=== PATIENT | female | born 1975 | race Caucasian/White ===

== ENCOUNTER → 2020-04-22 13:46 | Outpatient (BNVA) | payer OTHER, SELFPAY | PROVIDERS: Family Provider Internal Medicine; PCP Internal Medicine; Visit Provider Nurse Practitioner | DX: Z02.1 Encounter for pre-employment examination (principal) | CPT/HCPCS: 81000 ==

== ENCOUNTER 2024-12-16 13:07 | Outpatient (CLI) | payer OTHER, SELFPAY ==
--- NOTE | 2024-12-16 13:14 | MM_ITS ---
WS: [id number] BILATERAL 3D TOMOSYNTHESIS DIGITAL SCREENING MAMMOGRAPHY WITH CAD CLINICAL INFORMATION: SCREENING HISTORY: Screening mammogram. No current complaints. Did not return for 2019 a 6-month follow-up COMPARISON: 2019 TECHNIQUE: Bilateral CC and MLO views. FINDINGS: Scattered fibroglandular densities bilaterally. No suspicious focal mass, asymmetry, calcifications, or architectural distortion. No evidence of malignancy. Previously described asymmetries in the later al RIGHT breast are unchanged. MM/MM [facility] tomosynthesis [id number] IMPRESSION: DENSITY: There are scattered areas of fibroglandular density. BI-RADS: 2 - Benign. FOLLOW UP: 1 Year Follow-up Recommend return to annual screening mammography.
== END 2024-12-16 13:08 | disposition home or self-care (01) ==
LOC: RAD 13:12
PROVIDERS: Family Provider Internal Medicine; PCP Family Medicine; Visit Provider Internal Medicine
DX: Z12.31 Encounter for screening mammogram for malignant neoplasm of breast (principal); R92.323 Mammographic fibroglandular density, bilateral breasts; N64.89 Other specified disorders of breast
CPT/HCPCS: 77063; 77067

== ENCOUNTER 2025-03-17 14:13 | Outpatient (CLI) | payer OTHER, SELFPAY ==
--- NOTE | 2025-03-17 14:17 | CT_ITS ---
WS: [id number] CT ABDOMEN AND PELVIS WITH AND WITHOUT CONTRAST HISTORY: URINE ABNORMALITY, hematuria. TECHNIQUE: Unenhanced 5 mm axial imaging first performed through the abdomen. Post contrast imaging through the abdomen and pelvis. Oral contrast has not been provided. Sagittal and coronal reformats are submitted. All CT scans at [facility] use at least one of these dose optimization techniques: automated exposure control; mA and/or kV adjustment per patient size (includes targeted exams where dose is matched to clinical indication); or iterative reconstruction. CONTRAST: Omnipaque 350; 95 mL IV. DLP: 1375.67 mGy.cm COMPARISON: None available. Lungs are well aerated. Benign granuloma LEFT lung base. There is a central calcification with a small amount of noncalcified surrounding soft tissue. The entire nodule measures 2.0 cm. Heart is normal size. Small hiatal hernia. RIGHT kidney: Normal size kidney with no calcification or obstruction. No enhancing mass. LEFT kidney: Normal size kidney with no obstruction or calcification. Simple cyst upper pole measures 2.2 x 2.0 cm. No solid mass or renal obstruction. No ureteral obstruction. Liver, gallbladder, spleen, pancreas and adrenal glands are negative. Minimal atherosclerosis aorta. No aneurysm. No GI tract obstruction. No colitis. There is increased soft tissue in the ascending colon which needs to be further evaluated. This is asymmetric increased soft tissue with diameter measuring up to 2.6 cm. No adjacent lymph node. Mild sigmoid diverticular burden. There is narrowing of the lumen with no acute diverticulitis. Prior appendectomy. Enlarged endometrium. Endometrium measures up to 2.2 cm with soft tissue extension towards the cervix. Ovaries are normal size. Urinary bladder is minimally No destructive bone lesions. Distended. CT/CT abdomen pelvis wo/w [id number] IMPRESSION: 1. No renal calcification or obstruction. 2. LEFT renal cyst 2.2 x 2.0 cm. 3. Asymmetric soft tissue thickening of the ascending colon suspicious for ching plasm until proven otherwise. Recommend colonoscopy. 4. Abnormal endometrium measuring up to 2.2 cm. Endometrial neoplasm needs to be excluded. Recommend transvaginal pelvic ultrasound imaging. 5. Sigmoid diverticulosis. Narrowing of the lumen but no evidence for acute di verticulitis at this time.
[2025-03-17] MEDS: iohexol 350 mg/mL 500 mL Btl (per mL) IV (14:38)
== END 2025-03-17 14:14 | disposition home or self-care (01) ==
PROVIDERS: Family Provider Internal Medicine; PCP Internal Medicine; Visit Provider Internal Medicine
DX: R82.90 Unspecified abnormal findings in urine (principal); N28.1 Cyst of kidney, acquired; M79.89 Other specified soft tissue disorders; R93.89 Abnormal findings on diagnostic imaging of other specified body structures; K57.30 Diverticulosis of large intestine without perforation or abscess without bleeding; J84.10 Pulmonary fibrosis, unspecified; K44.9 Diaphragmatic hernia without obstruction or gangrene; Z98.890 Other specified postprocedural states
CPT/HCPCS: 74178